=== PATIENT | female | born 1965 | race Caucasian/White ===

== ENCOUNTER 2020-12-27 12:55 | Outpatient (REF) | payer OTHER, SELFPAY ==
--- NOTE | ~2020-12-27 | MM_ITS ---
EXAMINATION: MM SCREENING DIGITAL BREAST TOMOSYNTHESIS, BILATERAL CLINICAL INFORMATION: Screening. Asymptomatic. The lifetime risk of breast cancer based on the Tyrer-Cuzick Model is 7%. COMPARISON: Mammography: 11/13/2019, 09/09/2018, 09/07/2017; outside mammography 09/02/2016, 08/28/2015 ([facility]). TECHNIQUE: Digital breast tomosynthesis is performed in both the craniocaudal and mediolateral oblique views along with computer-aided detection (CAD). Synthesized 2D images are generated from the tomosynthesis. FINDINGS: There are scattered areas of fibroglandular density (ACR BI-RADS breast composition Category b). Parenchymal pattern is similar to prior exams. There are bilateral stable asymmetries similar to prior studies. No developing density or interval mass or architectural abnormality. No abnormal calcifications. The axilla and skin contours are unremarkable. MM/MM tomosynthesis screening BI IMPRESSION: No mammographic evidence of malignancy. ASSESSMENT: BI-RADS 2: Benign RECOMMENDATION: Routine annual mammography screening. This patient's information was entered into a reminder system with a target due date for their next mammogram.
== END 2020-12-27 12:56 | disposition home or self-care (01) ==
LOC: HO.MAMMO 12:55
PROVIDERS: PCP Nurse Practitioner Family; Visit Provider Nurse Practitioner Family
DX: Z12.31 Encounter for screening mammogram for malignant neoplasm of breast (principal)
CPT/HCPCS: 77063; 77067

== ENCOUNTER 2021-02-04 09:23 | Outpatient (REF) | payer OTHER, SELFPAY ==
[2021-02-04 10:38] LABS: Alanine Aminotransferase 20 U/L (0-31); Albumin Level 4.2 g/dL (3.5-5.0); Alkaline Phosphatase 77 U/L (39-117); Anion Gap 10 (12-20); Aspartate Amino Transferase 21 U/L (5-31); Blood Urea Nitrogen 14 mg/dL (9-16); Calcium 9.2 mg/dL (8.4-10.2); Carbon Dioxide 30 mmol/L (22-29); Chloride 105 mmol/L (96-108); Cholesterol 259 mg/dL; Estimated Glomerular Filt Rate > 60; Glucose Fasting 92 mg/dL (60-99); HDL Cholesterol 78 mg/dL; LDL Cholesterol Calculated 163 mg/dl; Potassium 3.9 mmol/L (3.3-5.1); Sodium 141 mmol/L (135-145); Total Protein 6.6 g/dL (6.5-8.0); Triglycerides 93 mg/dL
[2021-02-04 11:00] LABS: TSH reflex Free T4 0.66 uIU/mL (0.32-4.0); Vitamin D 25-OH Total 16.2 ng/mL (>30)
[2021-02-04 14:11] LABS: Appearance Urine CLEAR; Color Urine YELLOW; Glucose Urine UA NEG (NEG); Leukocyte Esterase Urine 1+ (NEG); Nitrite Urine NEG (NEG); UACC Culture Trigger YES; Urine Blood NEG (NEG); Urine Ketones NEG (NEG); Urine Protein NEG (NEG-TRACE)
[2021-02-04 14:59] LABS: Bacteria Urine TRACE /LPF; RBC Urine 0-2 /HPF (0); Squamous Epithelial Cell Urine 1+ /LPF
== END 2021-02-04 09:24 | disposition home or self-care (01) ==
LOC: HO.10HDL 09:23
PROVIDERS: Visit Provider Nurse Practitioner Family
DX: Z00.00 Encounter for general adult medical examination without abnormal findings (principal); Z78.0 Asymptomatic menopausal state
CPT/HCPCS: 36415; 80053; 80061; 81001; 82306; 84443; 87086; 87147

== ENCOUNTER 2022-01-07 13:17 | Outpatient (REF) | payer OTHER, SELFPAY ==
--- NOTE | ~2022-01-07 | MM_ITS ---
EXAMINATION: MM SCREENING DIGITAL BREAST TOMOSYNTHESIS, BILATERAL CLINICAL INFORMATION: Screening. Asymptomatic. The lifetime risk of breast cancer based on the Tyrer-Cuzick Model is 7%. COMPARISON: Mammography: 12/27/2020, 11/13/2019, 09/09/2018 TECHNIQUE: Digital breast tomosynthesis is performed in both the craniocaudal and mediolateral oblique views along with computer-aided detection (CAD). Synthesized 2D images are generated from the tomosynthesis. Additional bilateral MLO views are provided. FINDINGS: There are scattered areas of fibroglandular density (ACR BI-RADS breast composition Category b). There are no significant masses, abnormal calcifications, or other abnormalities. Parenchymal pattern is similar to prior studies. There is no developing density or architectural abnormality. The axilla and skin contours are unremarkable. No significant changes. MM/MM tomosynthesis screening BI IMPRESSION: No mammographic evidence of malignancy. ASSESSMENT: BI-RADS 1: Negative RECOMMENDATION: Routine annual mammography screening. This patient's information was entered into a reminder system with a target due date for their next mammogram.
== END 2022-01-07 13:18 | disposition home or self-care (01) ==
LOC: HO.MAMMO 13:17
PROVIDERS: Visit Provider Nurse Practitioner Family
DX: Z12.31 Encounter for screening mammogram for malignant neoplasm of breast (principal)
CPT/HCPCS: 77063; 77067

== ENCOUNTER 2022-03-24 10:01 | Outpatient (REF) | payer OTHER, SELFPAY ==
[2022-03-24 10:35] LABS: MANUAL DIFF FLAG NO
[2022-03-24 10:41] LABS: Basophils Percent Auto 0.8 % (0-2); Eosinophils Absolute Auto 0.2 X10*3/uL (0.0-0.4); Eosinophils Percent Auto 3.9 % (0-4); Hematocrit 41.7 % (37.0-47.0); Hemoglobin 13.6 g/dl (12.0-16.0); Imm Gran Abs Auto 0.01 X10*3/uL (0.00-0.03); Imm Gran Pct Auto 0.3 % (0.0-0.4); Lymphocytes Absolute Auto 1.1 X10*3/uL (1.2-4.9); Lymphocytes Percent Auto 29.2 % (20-40); Mean Corpuscular HGB Conc 32.6 g/dl (31.0-35.0); Mean Corpuscular Hemoglobin 29.2 pg (27.0-33.0); Mean Corpuscular Volume 89.7 fL (80.0-98.0); Mean Platelet Volume 10.9 fL (9.4-12.3); Monocytes Absolute Auto 0.3 X10*3/uL (0.1-1.2); Monocytes Percent Auto 8.8 % (2-11); Neutrophils Absolute Auto 2.2 x10*3/uL (2.0-8.3); Platelet Count 257 X10*3/uL (160-400); Red Blood Count 4.65 X10*6/uL (4.20-5.50); Red Cell Distribution Width 11.7 % (11.0-16.0); White Blood Count 3.9 X10*3/uL (4.8-10.8)
[2022-03-24 11:44] LABS: Alanine Aminotransferase 19 U/L (0-31); Albumin Level 4.2 g/dL (3.5-5.0); Alkaline Phosphatase 78 U/L (39-117); Anion Gap 14 (12-20); Aspartate Amino Transferase 24 U/L (5-31); Bilirubin Total 1.3 mg/dL (0.0-1.0); Blood Urea Nitrogen 19 mg/dL (9-16); Calcium 9.2 mg/dL (8.4-10.2); Carbon Dioxide 27 mmol/L (22-29); Chloride 105 mmol/L (96-108); Cholesterol 269 mg/dL; Estimated Glomerular Filt Rate > 60; Glucose Fasting 90 mg/dL (60-99); HDL Cholesterol 81 mg/dL; LDL Cholesterol Calculated 170 mg/dl; Potassium 3.9 mmol/L (3.3-5.1); Sodium 142 mmol/L (135-145); TSH reflex Free T4 0.77 uIU/mL (0.32-4.0); Total Protein 6.7 g/dL (6.5-8.0); Triglycerides 92 mg/dL; Vitamin D 25-OH Total 27.2 ng/mL (>30)
[2022-03-24 14:07] LABS: Appearance Urine Cloudy; Color Urine Yellow; Glucose Urine UA Negative (Negative); Leukocyte Esterase Urine Negative (Negative); Nitrite Urine Negative (Negative); PH 8.5 (5.0-9.0); Specific Gravity - Urine 1.025 (1.005-1.025); Urine Blood Negative (Negative); Urine Ketones Trace mg/dL (Negative); Urine Protein Negative (Neg-Trace)
== END 2022-03-24 10:02 | disposition home or self-care (01) ==
LOC: HO.10HDL 10:01
PROVIDERS: Visit Provider Nurse Practitioner Family
DX: Z00.00 Encounter for general adult medical examination without abnormal findings (principal); E55.9 Vitamin D deficiency, unspecified
CPT/HCPCS: 36415; 80053; 80061; 81003; 82306; 84443; 85025

== ENCOUNTER 2022-04-29 12:39 | Outpatient (REF) | payer OTHER, SELFPAY ==
[2022-04-29 13:36] LABS: MANUAL DIFF FLAG NO
[2022-04-29 13:39] LABS: Basophils Percent Auto 0.4 % (0-2); Eosinophils Absolute Auto 0.2 X10*3/uL (0.0-0.4); Eosinophils Percent Auto 4.2 % (0-4); Hematocrit 40.1 % (37.0-47.0); Hemoglobin 13.1 g/dl (12.0-16.0); Imm Gran Abs Auto 0.02 X10*3/uL (0.00-0.03); Imm Gran Pct Auto 0.4 % (0.0-0.4); Lymphocytes Absolute Auto 1.5 X10*3/uL (1.2-4.9); Lymphocytes Percent Auto 31.3 % (20-40); Mean Corpuscular HGB Conc 32.7 g/dl (31.0-35.0); Mean Corpuscular Hemoglobin 29.6 pg (27.0-33.0); Mean Corpuscular Volume 90.7 fL (80.0-98.0); Mean Platelet Volume 11.2 fL (9.4-12.3); Monocytes Absolute Auto 0.4 X10*3/uL (0.1-1.2); Monocytes Percent Auto 9.2 % (2-11); Neutrophils Absolute Auto 2.6 x10*3/uL (2.0-8.3); Neutrophils Percent Auto 54.5 % (45-73); Platelet Count 237 X10*3/uL (160-400); Red Blood Count 4.42 X10*6/uL (4.20-5.50); Red Cell Distribution Width 11.8 % (11.0-16.0); Reticulocyte Percent 1.2 % (0.5-1.8); Reticulocytes Absolute 0.051 X10*6/uL (0.026-0.095); White Blood Count 4.8 X10*3/uL (4.8-10.8)
[2022-04-29 14:25] LABS: Lactate Dehydrogenase 283 U/L (122-220)
[2022-04-29 14:50] LABS: Folate 13.9 ng/mL (> or = 4.0); Vitamin B12 560 pg/mL (200-900)
[2022-05-01 16:07] LABS: IgA 123 mg/dL (47-310); IgG 865 mg/dL (600-1640); IgM 74 mg/dL (50-300)
== END 2022-04-29 12:40 | disposition home or self-care (01) ==
LOC: HO.10HDL 12:39
PROVIDERS: Visit Provider Internal Medicine
DX: D72.819 Decreased white blood cell count, unspecified (principal)
CPT/HCPCS: 36415; 82607; 82746; 82784; 83615; 85025; 85045; 86334

== ENCOUNTER 2023-01-13 12:53 | Outpatient (REF) | payer OTHER, SELFPAY ==
--- NOTE | ~2023-01-13 | MM_ITS ---
EXAMINATION: MM SCREENING DIGITAL BREAST TOMOSYNTHESIS, BILATERAL CLINICAL INFORMATION: Screening. Asymptomatic. COMPARISON: Mammography: This study is compared with prior exams dating back to 2017. TECHNIQUE: Digital breast tomosynthesis is performed in both the craniocaudal and mediolateral oblique views along with computer-aided detection (CAD). Synthesized 2D images are generated from the tomosynthesis. FINDINGS: The breasts are almost entirely fatty (ACR BI-RADS breast composition Category a). There are no significant masses, abnormal calcifications, or other abnormalities. MM/MM tomosynthesis screening BI IMPRESSION: No mammographic evidence of malignancy. ASSESSMENT: BI-RADS BI-RADS 1 - Negative RECOMMENDATION: Routine annual mammography screening. 1 year F/U This examination should not preclude the clinical evaluation of a suspicious palpable abnormality. This patient's information was entered into a reminder system with a target due date for their next mammogram.
== END 2023-01-13 12:54 | disposition home or self-care (01) ==
LOC: HO.MAMMO 12:53
PROVIDERS: Visit Provider Nurse Practitioner Family
DX: Z12.31 Encounter for screening mammogram for malignant neoplasm of breast (principal)
CPT/HCPCS: 77063; 77067

== ENCOUNTER → 2023-01-13 13:00 | Outpatient (BNV) | payer OTHER, SELFPAY | PROVIDERS: Visit Provider Radiology Diagnostic Radiology | DX: Z12.31 Encounter for screening mammogram for malignant neoplasm of breast (principal) | CPT/HCPCS: 77063; 77067 ==

== ENCOUNTER 2023-02-09 10:56 | Outpatient (AMB) | payer OTHER, SELFPAY ==
--- NOTE | 2023-02-09 11:00 | A.OFFPC_ITS ---
Vital Signs 02/09/23 11:03 02/09/23 11:36 Height 5 ft 0.5 in Weight 141 lb BMI 27.1 BP 116/78 Blood Pressure Location Lt brachial Position Sitting Pulse 111 H 75 Pulse Source Pulse Oximeter Pulse Oximetry (%) 98 Oxygen Delivery Method Room Air Intake Visit Reasons: Annual PE Intake Note: Patient here for Physical exam. And would like to talk about urinary issues. last Pap: Dr. Rosa 01/2023 last mammo: 01/13/2023 last eye exam: 05/2022-Dr. Kendrick Barajas Allergies vitamin D cream Allergy (Unknown, Uncoded 02/09/23 11:05) rash Tobacco use date assessed: 02/09/23 Dental Screening Dental Screen Date: 02/09/23 Did you have a dental visit in the last 12 months?: Yes Did you have a dental problem in the last 6 months where you did not have access to dental care?: No Was dental information given to patient?: Patient has dentist HPI Annual PE HPI Details Pt is here for a PE. Will order labs. Colon screen is up to date. Mammo is up to date. Pt has chronic UTIs. pt has a rn gynecology for paps. Will send cipro and diflucan. [facility] Medical History (Updated 02/09/23 @ 11:17 by FABIAN HdzPEPITO) Chronic UTI Family History Maternal Aunt Mental health disorder Paternal Uncle Substance use disorder Social History Housing: House Patient Tobacco Use Status: Never used Tobacco e-Cigarette/Vaping Use: Never Used Second Hand Smoke Exposure: No service: No Current occupational status: employed Current occupation: [employer] Current occupational exposures/hazards: Yes Cognitive needs: No Hearing needs: No Vision needs: No Questionnaire PHQ-9 Over the last 2 weeks, how often have you been bothered by any of the following problems? 1. Little interest or pleasure in doing things: not at all 2. Feeling down, depressed, or hopeless: not at all 3. Trouble falling or staying asleep, or sleeping too much: not at all 4. Feeling tired or having little energy: not at all 5. Poor appetite or overeating: not at all 6. Feeling bad about yourself - or that you are a failure or have let yourself or your family down: not at all 7. Trouble concentrating on things, such as reading the newspaper or watching television: not at all 8. Moving or speaking so slowly that other people could have noticed. Or the opposite - being so fidgety or restless that you have been moving around a lot more than usual: not at all 9. Thoughts that you would be better off or of hurting yourself in some way: not at all Total score: 0 Depression Screening Interpretation: Negative Depression Screening Done: Yes 85374 - PHQ-9 Billing: Yes Source: Developed by Drs. Gama Murray, Joanne Aponte, Olivier Pardo and colleagues, with an educational cyndi from [employer]. Thrive Questionnaire Date Thrive assessed: 02/09/23 I am a: Patient Within the past 12 months, did the food you bought not last and you didn't have the money to get more?: Never true Within the past 12 months, did you worry whether your food would run out before you got money to buy more?: Never true Do you have trouble paying for medicines?: No Do you have trouble getting transportation to medical appointments?: No Do you have trouble paying your heating and electricity bill?: No Do you have trouble taking care of your child, family member or friend?: No Do you have trouble with day-to-day activities such as bathing, preparing meals, shopping, managing finances, etc.?: No Are you currently unemployed and looking for a job?: No Are you interested in more education?: No AUDIT C Alcohol Use Questionnaire (AUDIT-C) 1. How often do you have a drink containing alcohol?: Never 3. How often do you have six or more drinks on one occasion?: Never Total Score: 0 Score Reviewed/Action Taken: No LEORA-7 AMB Questionnaire LEORA-7 Date LEORA - 7 assessed: 02/09/23 Feeling nervous, anxious, or on edge: 0 = Not at all Not being able to stop or control worryin = Not at all Worrying too much about different things: 0 = Not at all Trouble relaxin = Not at all Being so restless that it is hard to sit still: 0 = Not at all Becoming easily annoyed or irritable: 0 = Not at all Feeling afraid as if something awful might happen: 0 = Not at all Total LEORA-7 score (0-4 normal; 5-9 mild; 10-14 moderate; 15-21 severe): 0 Source: Developed by Drs. Gama Murray, Joanne Aponte, Olivier Pardo and colleagues, with an educational cyndi from [employer]. LEORA-7 Assessment Billing LEORA-7 Assessment Tool: LEORA-7 Assessment 35043 Review of Systems Const Denies chills and Denies fever(s) Eyes Denies blurry vision ENT Denies vertigo, Denies dizziness and Denies sore throat Card Denies chest pain at rest, Denies chest pain with activity, Denies diaphoresis, Denies dyspnea and Denies dyspnea on exertion Resp Denies cough, Denies dyspnea, Denies dyspnea on exertion and Denies wheezing GI Denies abdominal pain, Denies melena, Denies hematochezia, Denies constipation, Denies diarrhea and Denies loose stools Denies hematuria Musc Denies numbness and Denies tingling Skin/Breast Denies lesions Neuro Denies vertigo, Denies dizziness, Denies numbness and Denies tingling Psych Denies anxiety, Denies depression, Denies homicidal ideation, Denies suicidal ideation and Denies other (substance abuse) Aller/Immun Denies wheezing Physical exam (Primary Care) Vital Signs: Last Vital Signs Pulse 75 02/09/23 11:36 BP 116/78 02/09/23 11:03 Pulse Ox 98 02/09/23 11:03 Oxygen Delivery Method Room Air 02/09/23 11:03 BMI result Body Mass Index 27.1 Tobacco/Smoking Status: Tobacco use Status Tobacco use date assessed 02/09/23 02/09/23 11:11 Patient Tobacco Use Status Never used Tobacco 02/09/23 11:00 e-Cigarette/Vaping Use Never Used 02/09/23 11:00 Depression Screening Interpretation: Negative Thrive Assessment: Date of Thrive Assessment Date Thrive assessed 02/03/22 02/09/23 11:00 Const General: cooperative Nutritional Appearance: well nourished Orientation/consciousness: patient oriented x3 HENMT Head: Yes normal to inspection, Yes normocephalic and Yes atraumatic Ears: TM's normal bilaterally Eyes General: appearance normal, both eyes and all related structures Alignment and Position: alignment normal and position normal Neck Neck: Yes normal visual inspection and Yes no lymphadenopathy Thyroid: Thyroid normal Resp Effort & Inspection: normal respiratory effort Auscultation: clear to auscultation bilaterally Cardio Rate: regular rate Rhythm: regular rhythm Heart sounds: S1 normal heart sound present, S2 normal heart sound present and no murmurs GI Palpation (GI): Soft to palpation and nontender Auscultation: normal bowel sounds Skin Rashes: no rashes Neuro General: patient oriented x3, moves all extremities, no focal motor deficits and deep tendon reflexes 2+ bilaterally Romberg Test: Negative Psych Appearance: grossly normal Mental Status: mental status grossly normal Speech and movement: Normal speech and movement present Affect: normal affect Attitude: cooperative Thought process: Normal thought process present Thought content: Normal thought content present Insight: Good insight present (Psych) Judgement: Good judgement present (Psych) Assessment and Plan Assessment & Plan (1) Physical exam: Code(s): Z. - Encounter for general adult medical examination without abnormal findings (2) Vitamin D deficiency: Code(s): E55.9 - Vitamin D deficiency, unspecified Plan The patient agreed to the use of a auditor medical claims for this encounter. Scribed for RAHEEM Benjamin by Jane Vieyra [employer] medical claims, on 02/09/2023 at 11:15 EST. Orders: Orders Comprehensive [place]. Panel Fast Today Z. - Encounter for general adult medical examination without abnormal findings Lipid Panel Today Z00. - Encounter for general adult medical examination without abnormal findings Vitamin D 25-OH Total Today E55.9 - Vitamin D deficiency, unspecified Complete Blood Count Auto Diff Today Z00.00 - Encounter for general adult medical examination without abnormal findings TSH reflex Free T4 Today Z00.00 - Encounter for general adult medical examination without abnormal findings UA CC w/rflx Micro + Cult Today Z00.00 - Encounter for general adult medical examination without abnormal findings Medications: New ciprofloxacin HCl 500 mg PO BID 7 days 14 tabs 3RF fluconazole 150 mg PO Q3D 2 tabs 3RF Coding Level of Care Code Est Pt Prev Care 40-64y(47683) Diagnoses Physical exam Z00. Vitamin D deficiency E55.9 Additional Codes LEORA-7 Assessment Billing - LEORA-7 Assessment Tool: LEORA-7 Assessment 15063 ([id number])
[2023-02-09 11:03] VITALS: BP 116/78; PULSE 111; O2SAT 98; BMI 27.1
[2023-02-09 11:36] VITALS: PULSE 75
== END 2023-02-09 11:42 | disposition home or self-care (01) ==
PROVIDERS: Visit Provider Nurse Practitioner Family
DX: Z00.00 Encounter for general adult medical examination without abnormal findings (principal); E55.9 Vitamin D deficiency, unspecified
CPT/HCPCS: 99396

== ENCOUNTER 2024-01-19 12:56 | Outpatient (REF) | payer OTHER, SELFPAY ==
--- NOTE | ~2024-01-19 | MM_ITS ---
EXAMINATION: MM SCREENING DIGITAL BREAST TOMOSYNTHESIS, BILATERAL CLINICAL INFORMATION: Screening. Asymptomatic. COMPARISON: Mammography: Comparison is made with available priors TECHNIQUE: Digital breast mammography with tomosynthesis is performed in both the craniocaudal and mediolateral oblique views along with computer-aided detection (CAD). FINDINGS: There are scattered areas of fibroglandular density (ACR BI-RADS breast composition Category b). There are no significant masses, abnormal calcifications, or other abnormalities. MM/MM tomosynthesis screening BI IMPRESSION: No mammographic evidence of malignancy. ASSESSMENT: BI-RADS BI-RADS 1 - Negative RECOMMENDATION: Routine annual mammography screening. 1 year F/U This examination should not preclude the clinical evaluation of a suspicious palpable abnormality. This patient's information was entered into a reminder system with a target due date for their next mammogram. Electronically signed by: Silva Fritz DO 01/28/2024 01:40 PM HANNA
== END 2024-01-19 12:57 | disposition home or self-care (01) ==
LOC: HO.MAMMO 12:56
PROVIDERS: PCP Nurse Practitioner Family; Visit Provider Nurse Practitioner Family
DX: Z12.31 Encounter for screening mammogram for malignant neoplasm of breast (principal)
CPT/HCPCS: 77063; 77067

== ENCOUNTER → 2024-01-19 13:00 | Outpatient (BNV) | payer OTHER, SELFPAY | PROVIDERS: PCP Nurse Practitioner Family; Visit Provider Internal Medicine | DX: Z12.31 Encounter for screening mammogram for malignant neoplasm of breast (principal) | CPT/HCPCS: 77063; 77067 ==

== ENCOUNTER 2024-02-15 11:18 | Outpatient (REF) | payer OTHER, SELFPAY ==
[2024-02-15 14:30] LABS: HCG Quantitative 12 mIU/mL
== END 2024-02-15 11:19 | disposition home or self-care (01) ==
LOC: HO.10HDL 11:18
PROVIDERS: Visit Provider Nurse Practitioner Family
DX: Z34.90 Encounter for supervision of normal pregnancy, unspecified, unspecified trimester (principal)
CPT/HCPCS: 36415; 84702

== ENCOUNTER 2024-02-22 10:56 | Outpatient (AMB) | payer OTHER, SELFPAY ==
[2024-02-22 11:09] VITALS: BP 124/78; PULSE 76; O2SAT 98; BMI 27.7
--- NOTE | 2024-02-22 11:09 | A.OFFPC_ITS ---
Vital Signs 02/22/24 11:09 Height 5 ft 0.5 in Weight 144 lb BMI 27.7 BP 124/78 Blood Pressure Location Rt brachial Position Sitting Pulse 76 Pulse Source Pulse Oximeter Pulse Oximetry (%) 98 Oxygen Delivery Method Room Air Intake Visit Reasons: Annual PE Intake Note: pt is here for annual exam [facility] [employer] Required: No Allergies vitamin D cream Allergy (Unknown, Uncoded 02/22/24 11:09) rash Medication List - Last Reconciled 02/22/24 by ROBERT HdzP- albuterol sulfate 90 mcg/actuation 1 inh inhalation QID PRN fykgdis-ltyquhfyphffm-tahbjray 250-250-65 mg (Excedrin Migraine) 2 tabs PO Q6H PRN ciprofloxacin HCl 500 mg PO BID 7 days fluconazole 150 mg PO Q3D 2 doses fluticasone propionate 50 mcg/actuation (Flonase Allergy Relief) 1 spray intranasal DAILY ipratropium bromide 2 sprays intranasal BID PRN Tobacco use date assessed: 02/22/24 Dental Screening Dental Screen Date: 02/22/24 Did you have a dental visit in the last 12 months?: Yes Did you have a dental problem in the last 6 months where you did not have access to dental care?: No Was dental information given to patient?: Patient has dentist HPI Annual PE HPI Details History of Present Illness The patient is a 58-year-old female presenting with a PE. The patient reports a history of migraines, which have been consistent since age 19 and influenced by familial patterns. The migraines are manageable with Excedrin and rest, usually resolving after a few hours of sleep. There is no change in intensity or frequency with hormonal changes. She has a history of UTIs and typically keeps a prescription for Cipro to address them when they arise. The patient's viral illnesses are usually accompanied by a cough that she manages with albuterol, though the patient reports low incidence recently. Mammogram is up to date, colon screen is up todate Health Maintenance - Received flu vaccine at [facility]. - Considering Cologuard for future colon cancer screening due. - Encouraged dietary modifications to in clude higher fiber content. - Engages in regular physical activities such as swimming and skiing. - Discussion on reducing intake of proce ssed foods and increasing meal preparation with fresh ingredients. Social History - The patient remains active with [employer] - teamwork across [employer] running, swimming, and skiing. - Expressed concern over typical Michelle n dietary habits, indicating a preference for healthier eating despite challenges. - No mention of current employment or [facility] status. - No substance use was discussed. -denies any blood in stool -denies any depression or anxiety Review of Systems - Headache: Reports managed migraine hecristi dacjelani. - Respiratory: Denies any recent viral i nfections or coughs. - Gastrointestinal: Reports history of d iverticulosis. - Genitourinary: Denies current UTI symp toms but manages with available prescri ption as needed. - Musculoskeletal: Reports regular physi edda activity. -denies any si or hi Physical Exam General: Cooperative, healthy appearing, comfortable, no acute distress and well developed Orientation: Patient oriented x3 Limitations: No limitations Head: Normal to inspection Ears: Hearing grossly normal bilaterally, no effusion or wax noted Nose: Normal external nose present Face and sinus: Normal facial exam Eyes: Appearance normal, both eyes and all related structures Neck: Normal visual inspection and Yes full ROM Respiratory: Normal respiratory effort and able to speak in complete sentences. Clear to auscultation bilaterally Cardiovascular: Regular rate and rhythm. Normal S1 and S2 GI: Normal to inspection. Soft to palpation and nontender Skin: No rashes or lesions noted Neuro: Patient oriented x3 Extremities: Normal to inspection Results Plan - Migraines: Continue use of Excedrin at onset and encourage rest. - UTIs: Maintain current prescription of Cipro for symptomatic episodes. - Viral infections: Continue annual flu vaccination and consider albuterol for respiratory symptoms if necessary. - Diverticulosis: Encourage increased di etary fiber intake to prevent complications. - Preventative Care: Schedule Cologuard test in 2024 for colon cancer screening, considering patient?s history and previous colonoscopy. Patient was informed and verbally consented to the use of an ambient scribe for clinic note documentation during this visit. Discussion Notes During the visit, we discussed the patient?s management of migraines using Excedrin and rest, which has been effective. We reviewed her access to Cipro for UTIs, which she has used for prior episodes with positive outcomes. We discussed the potential for viral infections and maintained a strategy for albuterol use if cough symptoms develop. I talked the patient through dietary recommendations to manage diverticulosis, emphasizing the benefit of high-fiber options. We acknowledged her health maintenance efforts, such as receiving the flu vaccine and planned for future colon cancer screening using Cologuard as an appropriate and non-invasive option. The patient is advised to continue her active lifestyle, maintaining her regular swimming and skiing activities. Follow-up plans include routine checks as needed. Patient Instructions - Continue with Excedrin for migraine ma nagement. - Use Cipro for UTI symptoms if they occ ur. - Maintain regular exercise and physical activity. - Increase dietary fiber to support coleen rointestinal health. - Follow up in 2024 for a Cologuard scre ening. - Maintain dietary adjustments focusing on fresh and high-fiber foods. - Keep flu vaccinations up to date michael figueredo. [facility] Medical History Chronic UTI Surgical History History of surgery on wrist Family History Maternal Aunt Mental health disorder Paternal Uncle Substance use disorder Social History Housing: House Patient Tobacco Use Status: Never used Tobacco e-Cigarette/Vaping Use: Never Used Second Hand Smoke Exposure: No service: No Current occupational status: employed Current occupation: [employer] Current occupational exposures/hazards: Yes Cognitive needs: No Hearing needs: No Vision needs: No Questionnaire PHQ-9 Over the last 2 weeks, how often have you been bothered by any of the following problems? 65785 - PHQ-9 Billing: Patient declined-do not bill Source: Developed by Drs. Gama Murray, Jonane Aponte, Olivier Pardo and colleagues, with an educational cyndi from [employer]. Thrive Questionnaire Date Thrive assessed: 02/09/23 LEORA-7 AMB Questionnaire LEORA-7 Date LEORA - 7 assessed: 02/09/23 Source: Developed by Drs. Gama Murrya, Joanne Aponte, Olivier Pardo and colleagues, with an educational cyndi from [employer]. Physical exam (Primary Care) Vital Signs: Last Vital Signs Pulse 76 02/22/24 11:09 BP 124/78 02/22/24 11:09 Pulse Ox 98 02/22/24 11:09 Oxygen Delivery Method Room Air 02/22/24 11:09 BMI result Body Mass Index 27.7 Tobacco/Smoking Status: Tobacco use Status Tobacco use date assessed 02/22/24 02/22/24 11:12 Patient Tobacco Use Status Never used Tobacco 02/22/24 11:12 e-Cigarette/Vaping Use Never Used 02/22/24 11:12 Thrive Assessment: Date of Thrive Assessment Date Thrive assessed 02/09/23 02/22/24 11:12 Coding Level of Care Code Est Pt Prev Care 40-64y(73685) Diagnoses Physical exam Z00.00 Vitamin D deficiency E55.9 Assessment & Plan Assessment & Plan (1) Physical exam: Code(s): Z00.00 - Encounter for general adult medical examination without abnormal findings Category: Medical (2) Vitamin D deficiency: Code(s): E55.9 - Vitamin D deficiency, unspecified Category: Medical Plan . Orders: Orders Comprehensive [place]. Panel Fast Today Z00.00 - Encounter for general adult medical examination without abnormal findings Lipid Panel Today Z00.00 - Encounter for general adult medical examination without abnormal findings Complete Blood Count Auto Diff Today Z00.00 - Encounter for general adult medical examination without abnormal findings TSH reflex Free T4 Today Z00.00 - Encounter for general adult medical examination without abnormal findings UA CC w/rflx Micro + Cult Today Z00.00 - Encounter for general adult medical examination without abnormal findings Vitamin D 25-OH Total Today E55.9 - Vitamin D deficiency, unspecified
== END 2024-02-22 11:41 | disposition home or self-care (01) ==
PROVIDERS: Visit Provider Nurse Practitioner Family
DX: Z00.00 Encounter for general adult medical examination without abnormal findings (principal); E55.9 Vitamin D deficiency, unspecified

== ENCOUNTER → 2024-02-22 10:56 | Outpatient (BNVA) | payer OTHER, SELFPAY | PROVIDERS: Visit Provider Nurse Practitioner Family ==

== ENCOUNTER 2024-06-08 09:26 | Outpatient (REF) | payer OTHER, SELFPAY ==
[2024-06-08 11:08] LABS: MANUAL DIFF FLAG NO
[2024-06-08 11:16] LABS: Basophils Percent Auto 0.3 % (0-2); Eosinophils Percent Auto 0.2 % (0-4); Hematocrit 40.7 % (37.0-47.0); Hemoglobin 13.3 g/dl (12.0-16.0); Imm Gran Abs Auto 0.07 X10*3/uL (0.00-0.03); Imm Gran Pct Auto 0.7 % (0.0-0.4); Lymphocytes Absolute Auto 0.9 X10*3/uL (1.2-4.9); Lymphocytes Percent Auto 8.4 % (20-40); Mean Corpuscular HGB Conc 32.7 g/dl (31.0-35.0); Mean Corpuscular Hemoglobin 28.8 pg (27.0-33.0); Mean Corpuscular Volume 88.1 fL (80.0-98.0); Mean Platelet Volume 11.1 fL (9.4-12.3); Monocytes Absolute Auto 0.4 X10*3/uL (0.1-1.2); Monocytes Percent Auto 4.2 % (2-11); Neutrophils Percent Auto 86.2 % (45-73); Platelet Count 232 X10*3/uL (160-400); Red Blood Count 4.62 X10*6/uL (4.20-5.50); Red Cell Distribution Width 11.9 % (11.0-16.0); White Blood Count 10.4 X10*3/uL (4.8-10.8)
[2024-06-08 11:21] LABS: Appearance Urine Clear; Color Urine Yellow; Glucose Urine UA Negative (Negative); Leukocyte Esterase Urine Negative (Negative); Nitrite Urine Negative (Negative); PH 5.5 (5.0-9.0); Urine Blood Negative (Negative); Urine Ketones Negative (Negative); Urine Protein Negative (Neg-Trace)
[2024-06-08 12:03] LABS: TSH reflex Free T4 0.53 uIU/mL (0.32-4.0)
[2024-06-08 12:05] LABS: Anion Gap 10 (12-20)
[2024-06-08 12:10] LABS: Alanine Aminotransferase 23 U/L (0-31); Albumin Level 4.2 g/dL (3.5-5.0); Alkaline Phosphatase 78 U/L (39-117); Aspartate Amino Transferase 24 U/L (5-31); Bilirubin Total 0.4 mg/dL (0.0-1.0); Blood Urea Nitrogen 17 mg/dL (9-16); Calcium 9.1 mg/dL (8.4-10.2); Carbon Dioxide 29 mmol/L (22-29); Chloride 110 mmol/L (96-108); Cholesterol 224 mg/dL (<200); Estimated Glomerular Filt Rate > 60; Glucose Fasting 132 mg/dL (60-99); HDL Cholesterol 82 mg/dL (>40); LDL Cholesterol Calculated 132 mg/dL (<100); Sodium 145 mmol/L (135-145); Total Protein 6.9 g/dL (6.5-8.0); Triglycerides 54 mg/dL (<150)
== END 2024-06-08 09:27 | disposition home or self-care (01) ==
LOC: HO.HHCL 09:26
PROVIDERS: Visit Provider Nurse Practitioner Family
DX: Z00.00 Encounter for general adult medical examination without abnormal findings (principal); E55.9 Vitamin D deficiency, unspecified; Z13.6 Encounter for screening for cardiovascular disorders
CPT/HCPCS: 36415; 80053; 80061; 81003; 82306; 84443; 85025